=== PATIENT | female | born 1975 | race African-American/Black ===

== ENCOUNTER 2016-11-24 00:49 | Emergency (ER) | payer OTHER ==
[~2016-11-24] VITALS: Ht 167.6 cm; Wt 127.5 kg
[2016-11-24 00:53] VITALS: TEMP 36.9; Ht 167.6 cm; Wt 127.5 kg
[2016-11-24] MEDS ORDERED: IBUPROFEN 600 MG TAB PO STA (01:12)
[2016-11-24] MEDS ORDERED: ACETAMINOPHEN 500 MG TAB PO STA (01:12)
[2016-11-24] MEDS ORDERED: DIPHTHERIA/TETANUS/PERTUSSIS 0.5 ML SYR/VIAL IM. ONE (01:15)
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
[2016-11-24 01:40] VITALS: PULSE 90; O2SAT 100
[2016-11-24 01:41] VITALS: BP 137/79
== END 2016-11-24 01:59 | disposition home or self-care (01) ==
LOC: EDBD 00:49 → C.EDA 00:51
DX: S80.812A Abrasion, left lower leg, initial encounter (principal); S00.83XA Contusion of other part of head, initial encounter; S16.1XXA Strain of muscle, fascia and tendon at neck level, initial encounter; Z23 Encounter for immunization; V43.52XA Car driver injured in collision with other type car in traffic accident, initial encounter